=== PATIENT | female | born 1965 | race Caucasian/White ===

== ENCOUNTER 2018-06-08 20:11 | Emergency (ER) | payer MEDICAID, OTHER ==
[~2018-06-08] VITALS: Wt 63.7 kg
--- NOTE | 2018-06-09 03:54 | ERD ---
ER Documentation Chief Complaint Chief Complaint WEAKNESS, SOB, CP X'S 2 WEEKS HPI 52-year-old woman brought in by her daughter for lab check. Patient has multiple complaints but it seems she has had the symptoms for over 2 months, she has a history of asthma, diabetes mellitus, hypertension, and hypothyroidism but has been noncompliant with her levothyroxine times 4 days. Daughter states she has generalized weakness, weight gain, lethargy, and periorbital edema over the last few weeks despite using 100 mcg levothyroxine up until 4 days ago. She has had no blood per rectum or melena, no fevers or chills, no complaints of chest pain or shortness of breath (despite triage report). Daughter is upset because her mom's PMD keeps telling them that she will be checking blood work but has not ordered lab tests yet ROS All systems reviewed and are negative except as per history of present illness. Medications Home Meds Active Scripts Ciprofloxacin Hcl* (Ciprofloxacin Hcl*) 500 Mg Tablet, 500 MG PO BID for 7 Days, TAB Prov:ANANDA TEJEDA MD 06/09/18 Allergies Allergies: Coded Allergies: Penicillins (Verified Allergy, Unknown, 06/08/18) Sulfa (Sulfonamide Antibiotics) (Verified Allergy, Unknown, 06/08/18) PMhx/Soc Hypertension, Hx Cardiac Disorders: Yes Hx Miscellaneous Medical Probl: Yes (DM) Hx Alcohol Use: No Hx Substance Use: No Hx Tobacco Use: No Smoking Status: Never smoker Physical Exam Vitals Vital Signs Date Temp Pulse Resp B/P (MAP) Pulse Ox O2 O2 Flow FiO2 Time Delivery Rate 06/09/18 97.2 59 14 166/85 99 Room Air 02:10 (112) 06/08/18 97.2 63 18 160/94 99 20:58 (116) Physical Exam Const: No acute distress Head: Atraumatic Eyes: Normal Conjunctiva ENT: Normal External Ears, Nose and Mouth. Neck: Full range of motion. No meningismus. Resp: Clear to auscultation bilaterally Cardio: Regular rate and rhythm, no murmurs Abd: Soft, non tender, non distended. Normal bowel sounds Skin: No petechiae or rashes Back: No midline or flank tenderness Ext: No cyanosis, or edema Neur: Awake and alert Psych: Normal Mood and Affect Result Diagram: 06/09/18 0410 06/09/18 0410 Results 24 hrs Laboratory Tests Test 06/09/18 04:10 06/09/18 04:15 White Blood Count 10.4 10^3/ul Red Blood Count 4.42 10^6/ul Hemoglobin 13.3 g/dl Hematocrit 38.7 % Mean Corpuscular Volume 87.6 fl Mean Corpuscular Hemoglobin 30.1 pg Mean Corpuscular Hemoglobin Concent 34.4 g/dl Red Cell Distribution Width 13.2 % Platelet Count 325 10^3/UL Mean Platelet Volume 10.4 fl Immature Granulocytes % 0.300 % Neutrophils % 54.7 % Lymphocytes % 35.7 % Monocytes % 5.7 % Eosinophils % 2.6 % Basophils % 1.0 % Nucleated Red Blood Cells % 0.0 /100WBC Immature Granulocytes # 0.030 10^3/ul Neutrophils # 5.7 10^3/ul Lymphocytes # 3.7 10^3/ul Monocytes # 0.6 10^3/ul Eosinophils # 0.3 10^3/ul Basophils # 0.1 10^3/ul Nucleated Red Blood Cells # 0.0 10^3/ul Sodium Level 140 mmol/L Potassium Level 4.0 mmol/L Chloride Level 104 mmol/L Carbon Dioxide Level 27 mmol/L Anion Gap 9 Blood Urea Nitrogen 14 mg/dl Creatinine 0.72 mg/dl Est Glomerular Filtrat Rate mL/min > 60 mL/min Glucose Level 106 mg/dl Calcium Level 10.0 mg/dl Total Bilirubin 0.5 mg/dl Direct Bilirubin 0.00 mg/dl Indirect Bilirubin 0.5 mg/dl Aspartate Amino Transf (AST/SGOT) 35 IU/L Alanine Aminotransferase (ALT/SGPT) 18 IU/L Alkaline Phosphatase 95 IU/L Troponin I < 0.012 ng/ml Total Protein 8.2 g/dl Albumin 4.4 g/dl Globulin 3.80 g/dl Albumin/Globulin Ratio 1.15 Lipase 174 U/L Thyroid Stimulating Hormone (TSH) Pending Free Triiodothyronine (T3) pg/mL Pending Urine Color STRAW Urine Clarity CLEAR Urine pH 6.0 Urine Specific Kimberly 1.012 Urine Ketones NEGATIVE mg/dL Urine Nitrite NEGATIVE mg/dL Urine Bilirubin NEGATIVE mg/dL Urine Urobilinogen NEGATIVE mg/dL Urine Leukocyte Esterase 2+ Malik/ul Urine Microscopic RBC 2 /HPF Urine Microscopic WBC 9 /HPF Urine Bacteria FEW /HPF Urine Hemoglobin NEGATIVE mg/dL Urine Glucose NEGATIVE mg/dL Urine Total Protein NEGATIVE mg/dl Current Medications Medications Dose Sig/Pascual Start Time Status Last (Trade) Ordered Route PRN Stop Time Admin Dose Reason Admin Ceftriaxone 50 ml @ ONCE ONCE 06/09/18 Sodium 100 mls/hr IVPB 05:00 06/09/18 05:29 Procedures/MDM IV line was established patient was placed on traffic monitor specialist rhythm strip revealed a sinus rhythm at about 60 bpm with upright P and T waves. Patient was afebrile EKG performed, read by me: 65 bpm, normal sinus rhythm, normal axis, no acute ST segment changes, narrow QRS complex, with good R-wave progression in precordial leads. CBC and electrolytes were normal, liver function tests were normal, troponin was negative, urinalysis was positive for infection. Thyroid panel is also been ordered results are pending I will follow-up. I suspect most of the patient's new symptoms are due to acute UTI and I treated her here with ceftriaxone 1 g IV. Some of her more long-standing symptoms are most likely due to chronic hypothyroidism and I referred her back to her PMD for medication optimization. Differential diagnoses considered, included but not limited to acute coronary syndrome, pulmonary embolism, aortic dissection, abdominal aortic aneurysm, sepsis, stroke, meningitis, encephalitis, pneumonia, appendicitis, cholecystitis, bowel obstruction, pyelonephritis, nephrolithiasis, cystitis, as well as metabolic, hematologic, and electrolyte abnormalities. As well as abscess, cellulitis, fractures, and dislocations. Patient feels much better at this time, and vital signs are normal, symptoms have improved. I did give strict instructions to return to the ED if symptoms continue or worsen, patient will otherwise follow-up with primary care physician. Patient understood instructions and agreed to plan. Disclaimer: Inadvertent spelling and grammatical errors are likely due to EHR/dictation software use and do not reflect on the overall quality of patient care. Also, please note that the electronic time recorded on this note does not necessarily reflect the actual time of the patient encounter. Departure Diagnosis: Primary Impression: Acute UTI Additional Impression: Hypothyroidism Hypothyroidism type: unspecified Qualified Codes: E03.9 - Hypothyroidism, unspecified Condition: ANANDA Lee MD Jun 09, 2018 03:54
[2018-06-09] MEDS ORDERED: CIPR500T4 PO (04:52)
[2018-06-09] MEDS ORDERED: CEFTRIAXONE 1 GM/50 ML (PMX) 50 ML IVPB ONE (05:00)
[2018-06-09 05:55] VITALS: BP 145/81; PULSE 65; RESP 16
== END 2018-06-09 05:45 | disposition home or self-care (01) ==
LOC: E/R 20:11
DX: N39.0 Urinary tract infection, site not specified (principal); E03.9 Hypothyroidism, unspecified; E11.9 Type 2 diabetes mellitus without complications; I10 Essential (primary) hypertension
CPT/HCPCS: 36415; 80053; 81001; 83690; 84439; 84443; 84481; 84484; 85025; 93005; 96365; J0696; Z7502